=== PATIENT | female | born 1940 | race Two or more races ===

== ENCOUNTER 2020-12-13 15:40 | Emergency (ER) | payer OTHER ==
[2020-12-13 15:46] VITALS: BP 179/70; PULSE 67; TEMP 97.8; BMI 21.2
[2020-12-13] MEDS ORDERED: LIDOCAINE 5% TOPICAL PATCH TP ONE (16:42)
[2020-12-13] MEDS ORDERED: ACETAMINOPHEN 500 MG TABLET (FP) PO ONE (16:42)
[2020-12-13] MEDS ORDERED: CYCLOBENZAPRINE HCL 10 MG TABLET (FP) PO ONE (16:45)
[2020-12-13] MEDS ORDERED: LIDOCAINE 5% TOPICAL PATCH ONE (16:49)
[2020-12-13] MEDS ORDERED: ACETAMINOPHEN 500 MG TABLET (FP) ONE (16:50)
[2020-12-13] MEDS ORDERED: CYCLOBENZAPRINE HCL 10 MG TABLET (FP) ONE (16:50)
[2020-12-13] MEDS ORDERED: LIDOCAINE PATCH REMOVAL MC SCH (22:00)
== END 2020-12-13 18:00 | disposition home or self-care (01) ==
LOC: JERFT 15:40 → JER 15:40 → JERFT 18:00
DX: M54.32 Sciatica, left side (principal)
CPT/HCPCS: 72170-TC-FY; 73502-TC-LT-FY; 99284-25